=== PATIENT | male | born 1955 | race Caucasian/White ===

== ENCOUNTER → 2017-12-17 | Outpatient (CLI) | payer OTHER ==
--- NOTE | 2017-12-18 08:00 | US ---
EXAMINATION TYPE: US carotid duplex BILAT DATE OF EXAM: 12/17/2017 COMPARISON: 03/10/2016 CLINICAL HISTORY: I65.20 occlusion and stenosis of rt carotid artery. Patient states not having any s urgeries to carotid EXAM MEASUREMENTS: RIGHT: Peak Systolic Velocity (PSV) cm/sec ----- Right CCA: 83.4 ----- Right ICA: 131.8 ----- Right ECA: 255.3 ICA/CCA ratio: 1.6 RIGHT: End Diastole cm/sec ----- Right CCA: 18.0 ----- Right ICA: 38.1 ----- Right ECA: 24.0 LEFT: Peak Systolic Velocity (PSV) cm/sec ----- Left CCA: 86.4 ----- Left ICA: 124.0 ----- Left ECA: 135.0 ICA/CCA ratio: 1.4 LEFT: End Diastole cm/sec ----- Left CCA: 19.3 ----- Left ICA: 27.4 ----- Left ECA: 7.4 VERTEBRALS (direction of flow): Right Vertebral: Antegrade Left Vertebral: Antegrade Rhythm: Normal Bilateral wall thickening. Elevated right proximal ICA, left ECA, right ECA and left bulb. Plaque s een in bilateral bulbs and mid left CCA. Significant stenosis today compared to last exam in 2015. IMPRESSION: 1. No significant progression in degree of stenosis of the carotid arteries in comparison to the lashawn or 2016. Slightly elevated internal carotid artery peak systolic velocity in the right and borderline on the left are present however the internal carotid artery to common carotid artery ratio is within normal limits. Grayscale images favor stenosis of 50% or less at these locations. 2. External carotid artery stenosis of 50-69%, right greater than left.
== END | disposition home or self-care (01) ==
LOC: RADUSWWP 16:52
PROVIDERS: ATTEND Family Medicine
DX: I65.23 Occlusion and stenosis of bilateral carotid arteries (principal)
CPT/HCPCS: 93880

== ENCOUNTER → 2019-08-02 | Outpatient (CLI) | payer MEDICARE, OTHER ==
--- NOTE | 2019-08-02 13:12 | US ---
EXAMINATION TYPE: US carotid duplex BILAT DATE OF EXAM: 08/02/2019 COMPARISON: US 12/17/2017 CLINICAL HISTORY: AR09.89 Carotid bruit. EXAM MEASUREMENTS: RIGHT: Peak Systolic Velocity (PSV) cm/sec ----- Right CCA: 75.0 ----- Right ICA: 170.1 ----- Right ECA: 449.9 ICA/CCA ratio: 2.3 RIGHT: End Diastole cm/sec ----- Right CCA: 16.9 ----- Right ICA: 29.5 ----- Right ECA: 29.3 LEFT: Peak Systolic Velocity (PSV) cm/sec ----- Left CCA: 144.2 ----- Left ICA: 173.4 ----- Left ECA: 217.1 ICA/CCA ratio: 1.2 LEFT: End Diastole cm/sec ----- Left CCA: 26.0 ----- Left ICA: 20.1 ----- Left ECA: 13.7 VERTEBRALS (direction of flow): Right Vertebral: Antegrade Left Vertebral: Antegrade Rhythm: Normal Severe amount of plaque visualized bilaterally. Elevated velocities right ICA, right bulb, right ECA, left dist CCA, left ICA, left bulb, left ECA. IMPRESSION: 1. Stenosis of 50-69% within the right internal carotid artery and greater than 70% within the counseling specialist al carotid artery. 2. Findings likely related to stenosis of 50-69% within the left internal carotid artery and external carotid artery. 3. Diffusely prominent velocity suggests underlying hypertension. Criteria for Assigning % of Stenosis / Diameter reduction (Estimation based on the indirect measurements of the internal carotid artery velocities (ICA PSV). 1. Normal (no stenosis)=ICA PSV < 125 cm/s: ratio < 2.0: ICA EDV<40 cm/s. 2. Less than 50% stenosis=ICA PSV < 125 cm/s: ratio < 2.0: ICA EDV<40 cm/s. 3. 50 to 69% stenosis=ICA PSV of 125 to 230 cm/s: ration 2.0 ? 4.0: ICA EDV 40-100 cm/s. 4. Greater than 70% stenosis to near occlusion= ICA PSV > 230 cm/s: ratio > 4.0: ICA EDV > 100 cm/s. 5. Near occlusion= ICA PSV velocities may be low or undetectable: variable ratio and ICA EDV. 6. Total occlusion=unable to detect flow.
== END | disposition home or self-care (01) ==
LOC: RADUSWWP 12:01
PROVIDERS: ATTEND Family Medicine
DX: I65.21 Occlusion and stenosis of right carotid artery (principal)
CPT/HCPCS: 93880

== ENCOUNTER 2021-05-26 18:00 | Emergency (ER) | payer MEDICARE ==
[2021-05-26 18:08] VITALS: TEMP 97.9
[2021-05-26] MEDS ORDERED: SODIUM CHLORIDE 0.9% 1,000 ML IV STA (18:29)
[2021-05-26] MEDS ORDERED: ONDANSETRON 4 MG/2 ML VIAL IVP STA (18:29)
[2021-05-26] MEDS ORDERED: HYDROmorphone 1 MG/ML 1 ML SYRINGE IVP STA (18:29)
[2021-05-26] MEDS ORDERED: LORazepam 2 MG/ML INJ IV STA (18:31)
--- NOTE | 2021-05-26 18:45 | ED ---
General Adult HPI - General Chief complaint: Extremity Injury, Lower Stated complaint: Groin pain Time Seen by Provider: 05/26/21 18:15 Source: EMS Mode of arrival: EMS Limitations: no limitations - History of Present Illness Initial comments: 65-year-old male patient presents to the emergency department today for evaluation of right groin swelling and pain. Patient states he has had this in the past but usually resolves. States he noticed swelling and then had onset of pain around 1720 this afternoon. States that the pain is constant and sharp. States it hurts take a deep breath. States pain does radiate to the testicle. Denies fever or chills. States he has had normal bowel movements. Denies any vomiting. Has had appendectomy at age 19. No other abdominal surgeries. Patient denies any recent rash, cough, shortness of breath, chest pain, diarrhea, constipation, back pain, numbness, tingling, dizziness, weakness, hematuria, dysuria, urinary urgency, urinary frequency, headache, visual changes, or any other complaints. - Related Data Home Medications Medication Instructions Recorded Confirmed Albuterol Inhaler [Ventolin Hfa 1 - 2 puff INHALATION RT-QID PRN 05/26/21 05/26/21 Inhaler] Atorvastatin Calcium [Lipitor] 40 mg PO DAILY 05/26/21 05/26/21 Fluticasone/Salmeterol 2 puff INHALATION RT-BID 05/26/21 05/26/21 [Fluticasone-Salmeterol 232-14] Ipratropium-Albuterol Nebulize 3 ml INHALATION RT-QID PRN 05/26/21 05/26/21 [Duoneb 0.5 mg-3 mg/3 ml Soln] Loratadine 10 mg PO DAILY PRN 05/26/21 05/26/21 Meloxicam 15 mg PO DAILY 05/26/21 05/26/21 Terazosin HCl 10 mg PO BID 05/26/21 05/26/21 Verapamil HCl [Calan] 120 mg PO BID 05/26/21 05/26/21 lisinopriL [Zestril] 20 mg PO DAILY 05/26/21 05/26/21 Allergies Allergy/AdvReac Type Severity Reaction Status Date / Time codeine Allergy Rash/Hives Verified 05/26/21 20:46 Penicillins Allergy Rash/Hives Verified 05/26/21 20:46 Review of Systems ROS Statement: Those systems with pertinent positive or pertinent negative responses have been documented in the HPI. ROS Other: All systems not noted in ROS Statement are negative. Past Medical History Past Medical History: Asthma, COPD, Hyperlipidemia, Hypertension History of Any Multi-Drug Resistant Organisms: None Reported Past Surgical History: No Surgical Hx Reported Past Psychological History: No Psychological Hx Reported Smoking Status: Never smoker Past Alcohol Use History: None Reported Past Drug Use History: None Reported General Exam Limitations: no limitations General appearance: alert, in no apparent distress, other (This is a well developed, well nourished adult male in mild distress related to pain.) ENT exam: Present: normal exam, normal oropharynx, mucous membranes moist Respiratory exam: Present: normal lung sounds bilaterally. Absent: respiratory distress, wheezes, rales, rhonchi, stridor Cardiovascular Exam: Present: regular rate, normal rhythm, normal heart sounds. Absent: systolic murmur, diastolic murmur, rubs, gallop, clicks GI/Abdominal exam: Present: soft, tenderness (Right lower abdomen, right groin swelling, large inguinal hernia palpated. ), normal bowel sounds. Absent: distended, guarding, rebound, rigid Neurological exam: Present: alert, oriented X3, CN II-XII intact Psychiatric exam: Present: normal affect, normal mood Skin exam: Present: warm, dry, intact, normal color. Absent: rash Course Vital Signs 05/26/21 05/26/21 18:01 21:07 Temperature 97.9 F Pulse Rate 91 93 Respiratory 25 H 16 Rate Blood Pressure 132/74 139/66 O2 Sat by Pulse 97 95 Oximetry Medical Decision Making - Medical Decision Making 65 year-old male patient presents for evaluation of right groin pain and swelling that started an hour prior to arrival. Physical exam did reveal evide nce for large right inguinal hernia. Labs reviewed and showed WBC count 12.8, normal lactic acid. CT abdomen pelvis showed right inguinal hernia. My attending Dr. Vigil was in and was able to reduce the hernia. Patient was ambulatory. Pain much improved. Hernia remained reduced. I did discuss the case with Dr. Car who agrees to follow up with him outpatient. I did discuss home reduction of the hernia with him, lifting restrictions, and follow up information. Return parameters are discussed in detail. He verbalizes understanding and agrees with this plan. My attending is Dr. Vigil. - Lab Data Result diagrams: 05/26/21 18:45 05/26/21 18:45 Lab Results 05/26/21 05/26/21 05/26/21 Range/Units 18:45 18:45 18:45 WBC 12.3 H (3.8-10.6) k/uL RBC 4.46 (4.30-5.90) m/uL Hgb 15.0 (13.0-17.5) gm/dL Hct 43.5 (39.0-53.0) % MCV 97.6 (80.0-100.0) fL MCH 33.6 (25.0-35.0) pg MCHC 34.5 (31.0-37.0) g/dL RDW 13.2 (11.5-15.5) % Plt Count 172 (150-450) k/uL MPV 7.2 Neutrophils % 79 % Lymphocytes % 15 % Monocytes % 4 % Eosinophils % 1 % Basophils % 0 % Neutrophils # 9.7 H (1.3-7.7) k/uL Lymphocytes # 1.9 (1.0-4.8) k/uL Monocytes # 0.5 (0-1.0) k/uL Eosinophils # 0.1 (0-0.7) k/uL Basophils # 0.0 (0-0.2) k/uL Sodium 131 L (137-145) mmol/L Potassium 4.7 (3.5-5.1) mmol/L Chloride 102 (98-107) mmol/L Carbon Dioxide 21 L (22-30) mmol/L Anion Gap 8 mmol/L BUN 20 (9-20) mg/dL Creatinine 0.93 (0.66-1.25) mg/dL Est GFR (CKD-EPI)AfAm >90 (>60 ml/min/1.73 sqM) Est GFR (CKD-EPI)NonAf 85 (>60 ml/min/1.73 sqM) Glucose 113 H (74-99) mg/dL Plasma Lactic Acid Gm 0.6 L (0.7-2.0) mmol/L Calcium 9.6 (8.4-10.2) mg/dL Total Bilirubin 0.9 (0.2-1.3) mg/dL AST 27 (17-59) U/L ALT 24 (4-49) U/L Alkaline Phosphatase 61 (38-126) U/L Total Protein 6.2 L (6.3-8.2) g/dL Albumin 3.9 (3.5-5.0) g/dL Lipase 58 (23-300) U/L Urine Color Urine Appearance (Clear) Urine pH (5.0-8.0) Ur Specific [place] (1.001-1.035) Urine Protein (Negative) Urine Glucose (UA) (Negative) Urine Ketones (Negative) Urine Blood (Negative) Urine Nitrite (Negative) Urine Bilirubin (Negative) Urine Urobilinogen (<2.0) mg/dL Ur Leukocyte Esterase (Negative) 05/26/21 Range/Units 20:36 WBC (3.8-10.6) k/uL RBC (4.30-5.90) m/uL Hgb (13.0-17.5) gm/dL Hct (39.0-53.0) % MCV (80.0-100.0) fL MCH (25.0-35.0) pg MCHC (31.0-37.0) g/dL RDW (11.5-15.5) % Plt Count (150-450) k/uL MPV Neutrophils % % Lymphocytes % % Monocytes % % Eosinophils % % Basophils % % Neutrophils # (1.3-7.7) k/uL Lymphocytes # (1.0-4.8) k/uL Monocytes # (0-1.0) k/uL Eosinophils # (0-0.7) k/uL Basophils # (0-0.2) k/uL Sodium (137-145) mmol/L Potassium (3.5-5.1) mmol/L Chloride (98-107) mmol/L Carbon Dioxide (22-30) mmol/L Anion Gap mmol/L BUN (9-20) mg/dL Creatinine (0.66-1.25) mg/dL Est GFR (CKD-EPI)AfAm (>60 ml/min/1.73 sqM) Est GFR (CKD-EPI)NonAf (>60 ml/min/1.73 sqM) Glucose (74-99) mg/dL Plasma Lactic Acid Gm (0.7-2.0) mmol/L Calcium (8.4-10.2) mg/dL Total Bilirubin (0.2-1.3) mg/dL AST (17-59) U/L ALT (4-49) U/L Alkaline Phosphatase (38-126) U/L Total Protein (6.3-8.2) g/dL Albumin (3.5-5.0) g/dL Lipase (23-300) U/L Urine Color Light Yellow Urine Appearance Clear (Clear) Urine pH 7.0 (5.0-8.0) Ur Specific [place] 1.050 H (1.001-1.035) Urine Protein Negative (Negative) Urine Glucose (UA) 1+ H (Negative) Urine Ketones Negative (Negative) Urine Blood Negative (Negative) Urine Nitrite Negative (Negative) Urine Bilirubin Negative (Negative) Urine Urobilinogen <2.0 (<2.0) mg/dL Ur Leukocyte Esterase Negative (Negative) - Radiology Data Radiology results: report reviewed, image reviewed CT abdomen and pelvis is obtained. Report was reviewed in its entirety. Impression by Dr. Randall shows large common duct stones. No dilated ducts. Mild cardiomegaly. Atherosclerotic vascular disease. Right inguinal hernia show some incarceration with small bowel loops. No evidence of a bowel obstruction. Small amount of fluid noted also seen in the hernia sac. Disposition Clinical Impression: Right inguinal hernia Disposition: HOME SELF-CARE Condition: Good Instructions (If sedation given, give patient instructions): Inguinal Hernia (ED) Additional Instructions: Rest tonight. Do not drive. Do not lift over 10lbs. If the hernia returns, lie down with feet up on a pillow, apply slow steady pressure near the hip bone, take deep breaths and try to relax your muscles. This could help reduce the hernia at home. If pain persists or you are unable to get it to go down, return to the emergency department. Call Dr. Car's office in the morning for an appointment. Return to the emergency department for any new, worsening, or concerning symptoms. Is patient prescribed a controlled substance at d/c from ED?: No Referrals: Martina Cuellar MD [Primary Care Provider] - 1-2 days Marcus Car DO [Doctor of Osteopathic Medicine] - 1-2 days Time of Disposition: 21:51
[2021-05-26 18:51] LABS: Basophils % (A) 0 %; Eosinophils # (A) 0.1 k/uL (0-0.7); Eosinophils % (A) 1 %; HCT 43.5 % (39.0-53.0); Lymphocytes # (A) 1.9 k/uL (1.0-4.8); Lymphocytes % (A) 15 %; MCH 33.6 pg (25.0-35.0); MCHC 34.5 g/dL (31.0-37.0); MCV 97.6 fL (80.0-100.0); Mean Platelet Volume 7.2; Monocytes # (A) 0.5 k/uL (0-1.0); Monocytes % (A) 4 %; Neutrophils # (A) 9.7 k/uL (1.3-7.7); Neutrophils % (A) 79 %; Platelet Count 172 k/uL (150-450); RBC 4.46 m/uL (4.30-5.90); RDW 13.2 % (11.5-15.5); WBC 12.3 k/uL (3.8-10.6)
[2021-05-26 18:59] LABS: ALT 24 U/L (4-49); AST 27 U/L (17-59); African American GFR (CKD) >90 (>60 ml/min/1.73 sqM); Albumin 3.9 g/dL (3.5-5.0); Alkaline Phosphatase 61 U/L (38-126); Anion Gap 8 mmol/L; Blood Urea Nitrogen 20 mg/dL (9-20); Calcium 9.6 mg/dL (8.4-10.2); Carbon Dioxide 21 mmol/L (22-30); Chloride 102 mmol/L (98-107); Glucose 113 mg/dL (74-99); Lipase 58 U/L (23-300); Non-African American GFR(CKD) 85 (>60 ml/min/1.73 sqM); Potassium 4.7 mmol/L (3.5-5.1); Sodium 131 mmol/L (137-145); Total Bilirubin 0.9 mg/dL (0.2-1.3); Total Protein 6.2 g/dL (6.3-8.2)
--- NOTE | 2021-05-26 19:40 | CT ---
EXAMINATION TYPE: CT abdomen pelvis w con DATE OF EXAM: 05/26/2021 COMPARISON: None HISTORY: Right inguinal pain. CT DLP: 764.3 mGycm Automated exposure control for dose reduction was used. CONTRAST: Performed with IV Contrast, patient injected with 100ml mL of Isovue 300. Images obtained from the diaphragm to the floor the pelvis with IV contrast. There are small pleural effusions. Heart size is normal. There is no pericardial effusion. Liver spleen stomach pancreas appear intact. The bile ducts are not dilated. Gallbladder is absent. T here are calcifications in the right upper quadrant consistent with large common duct stones. These m easure up to 14 mm. There is no adrenal mass. Kidneys show satisfactory contrast opacification. There is no hydronephrosi s. Ureters are not dilated. There is no retroperitoneal adenopathy. Bladder distends smoothly. There is right inguinal hernia containing small bowel. There is also small amount of fluid in the hernia sa c. There is no mesenteric edema. There is no ascites or free air. There is no bowel obstruction. The lumbar vertebra have normal alignment. There is no compression fracture. Posterior elements are i ntact. Bony pelvis is intact. Abdominal aorta is shows some atheromatous changes. The hip joints are intact. Appendix not seen. No sign of thickened appendix. There are a few sigmoid diverticula without diverticulitis. IMPRESSION: Large common duct stones. No dilated ducts. Small pleural effusions. Mild cardiomegaly. Atherosclerotic vascular disease. Right inguinal hernia shows some incarceration with small bowel lo op. No evidence of a bowel obstruction. Small amount of fluid noted also in the hernia sac.
[2021-05-26] MEDS ORDERED: HYDROmorphone 0.5 MG/0.5 ML SYRINGE IVP STA (19:49)
[2021-05-26 20:49] LABS: Appearance,Urine Clear (Clear); Bilirubin,Urine Negative (Negative); Blood,Urine Negative (Negative); Color,Urine Light Yellow; Glucose,Urine (UA) 1+ (Negative); Ketones,Urine Negative (Negative); Leukocyte Esterase,Urine Negative (Negative); Nitrite,Urine Negative (Negative); Protein,Urine Negative (Negative); Urobilinogen,Urine <2.0 mg/dL (<2.0)
[2021-05-26 21:08] VITALS: BP 139/66; PULSE 93; RESP 16
== END 2021-05-26 22:12 | disposition home or self-care (01) ==
LOC: EC 18:00
DX: K40.90 Unilateral inguinal hernia, without obstruction or gangrene, not specified as recurrent (principal); I10 Essential (primary) hypertension; J44.9 Chronic obstructive pulmonary disease, unspecified; E78.5 Hyperlipidemia, unspecified; Z88.0 Allergy status to penicillin; Z88.5 Allergy status to narcotic agent; Z79.899 Other long term (current) drug therapy; Z79.51 Long term (current) use of inhaled steroids
CPT/HCPCS: 36415; 80053; 83605; 83690; 85025; 81003; 74177; 99284; 96374; 96375; 96376; J2060; J2405; J1170 ×2; Q9967

== ENCOUNTER 2022-04-21 06:50 | Day surgery (SDC) | payer MEDICARE, OTHER ==
[~2022-04-21 06:50] MED LIST: ALPRAZolam 0.25 MG TAB PO PRN; ALPRAZolam 0.5 MG TAB PO PRN; ASPIRIN 325 MG TAB PO ONE; ATORVASTATIN 80 MG TAB PO STA; HEPARIN SODIUM,PORCINE 10,000 UNIT in SODIUM CHLORIDE 0.9% 1,000 ML IRRIGATION PRN; HEPARIN SODIUM,PORCINE 2,500 UNIT in SODIUM CHLORIDE 0.9% 250 ML IRRIGATION PRN; NITROGLYCERIN SL TABS 0.4 MG TAB SUBLINGUAL PRN; SODIUM CHLORIDE 0.9% 1,000 ML in EMPTY BAG 1 BAG IV SCH
[2022-04-21] MEDS ORDERED: SODIUM CHLORIDE 0.9% 1,000 ML IV ONE (07:17)
[2022-04-21 07:36] VITALS: RESP 16; TEMP 97.9
[2022-04-21 07:40] LABS: Basophils # (A) 0.1 k/uL (0-0.2); Basophils % (A) 1 %; Eosinophils # (A) 0.1 k/uL (0-0.7); Eosinophils % (A) 1 %; HCT 43.2 % (39.0-53.0); HGB 15.1 gm/dL (13.0-17.5); Lymphocytes # (A) 2.6 k/uL (1.0-4.8); Lymphocytes % (A) 33 %; MCHC 35.1 g/dL (31.0-37.0); MCV 94.1 fL (80.0-100.0); Mean Platelet Volume 7.6; Monocytes # (A) 0.4 k/uL (0-1.0); Monocytes % (A) 5 %; Neutrophils # (A) 4.7 k/uL (1.3-7.7); Neutrophils % (A) 59 %; Platelet Count 196 k/uL (150-450); RBC 4.59 m/uL (4.30-5.90); RDW 12.3 % (11.5-15.5); WBC 7.9 k/uL (3.8-10.6)
[2022-04-21 07:48] LABS: African American GFR (CKD) >90 (>60 ml/min/1.73 sqM); Anion Gap 8 mmol/L; Blood Urea Nitrogen 17 mg/dL (9-20); Calcium 9.3 mg/dL (8.4-10.2); Carbon Dioxide 23 mmol/L (22-30); Chloride 110 mmol/L (98-107); Glucose 111 mg/dL (74-99); Non-African American GFR(CKD) 81 (>60 ml/min/1.73 sqM); Potassium 4.2 mmol/L (3.5-5.1); Sodium 141 mmol/L (137-145)
[2022-04-21] MEDS ORDERED: HEPARIN SODIUM 1,000 UN/ML (10ML VL) ONE (08:21)
[2022-04-21] MEDS ORDERED: VERAPAMIL 2.5 MG/ML 2 ML AMP ONE (08:21)
[2022-04-21] MEDS ORDERED: fentaNYL (PF) 50 MCG/ML 2 ML AMP ONE (08:25)
[2022-04-21] MEDS ORDERED: fentaNYL (PF) 50 MCG/ML 2 ML AMP IV ONE (08:31)
[2022-04-21] MEDS ORDERED: LIDOCAINE 1% INJ 10MG/ML (30 ML VIAL-PF) SQ ONE (08:32)
[2022-04-21] MEDS ORDERED: VERAPAMIL SYRINGE (5 MG/10 ML) INTRAARTER ONE (08:35)
[2022-04-21] MEDS ORDERED: MIDAZOLAM 2 MG/2 ML VIAL IV ONE (08:38)
[2022-04-21] MEDS ORDERED: HEPARIN SODIUM 1,000 UN/ML (10ML VL) IV ONE (08:42)
[2022-04-21] MEDS ORDERED: IOPAMIDOL-370 125ML BTL INJ ONE (08:43)
[2022-04-21] MEDS ORDERED: RX INFO: IV CONTRAST WAS GIVEN 1 EACH MISC MISCELLANE PRN (08:53)
[2022-04-21] MEDS ORDERED: LORATADINE 10 MG TAB PO PRN (08:54)
[2022-04-21] MEDS ORDERED: IPRATROPIUM-ALBUTEROL 3 ML NEB INHALATION PRN (08:54)
[2022-04-21] MEDS ORDERED: NON FORMULARY DRUG (Zinc Gluconate 50 MG Tab) PO SCH (09:00)
[2022-04-21] MEDS ORDERED: VERAPAMIL HCL 120 MG PO SCH (09:00)
[2022-04-21] MEDS ORDERED: METOPROLOL TARTRATE 25 MG TAB PO SCH (09:00)
[2022-04-21] MEDS ORDERED: SODIUM CHLORIDE 0.9% 1,000 ML IV SCH (09:00)
[2022-04-21] MEDS ORDERED: ATORVASTATIN 40 MG TAB PO SCH (09:00)
--- NOTE | 2022-04-21 09:00 | P.CARDCATH ---
Date of Procedure: 04/21/22 Description of Procedure: Cardiac Catheterization: The patient is a 66-year-old male with a known history of hypertension, hyperlipidemia and paroxysmal atrial fibrillation, anticoagulated recently underwent an MPI that showed apical ischemia. Recommendations were made regarding cardiac catheterization, the risks and the complications were discussed with the patient who is in full understanding and agreement. Procedure Description: Patient was brought to [facility] in fasting semi-sedated state after receiving Fentanyl and Benadryl achieiving moderate conscious sedated state. Using Xylocaine Anesthesia and Seldinger technique, a 6-[place] sheath was introduced in the right radial artery . Subsequently, selective coronary angiography was performed using a 5-[place] 3.5 bend Jaspreet catheter. Multiple views of the coronary artery including hemiaxial views were obtained. The 5-[place] Pigtail catheter was used to cross the aortic valve and LVEDP was calculated. Following that, catheter and sheath were removed. Hemostasis was obtained with deployment of TR band . There was no immediate complication. Patient was returned to room in stable condition. Of note, the patient received a total of 3000 units of intravenous heparin as well as intra-arterial verapamil. Findings: Calcification of the left main was noted Left main: This is a short sized vessel, bifurcating into LAD and left circumflex, left main has no high-grade stenosis LAD: This is a large size vessel, reaching to the apex, giving rise to a large diagonal branch, the LAD has mild disease of 10-20% in the midsegment the rest of the vessel has no high-grade stenosis Left circumflex: This is a large nondominant vessel giving rise to 3 obtuse marginal branch the left circumflex and its branches have no evidence of high- grade stenosis RCA: This is a large dominant vessel, bifurcating into PDA and PLV the mid RCA has a 30-40% plaque, there is of the vessel has no high-grade stenosis. Left Ventriculogram: Not performed Hemodynamics: There was no gradient across the aortic valve , LVEDP was 14-16 mmHg Conclusion: 1. Calcified left main 2. Mild disease in the mid LAD 3. Mild disease in the mid RCA 4. Right dominance Recommendations: I have recommended to continue medical therapy with aggressive coronary risks modifications. The findings and the recommendations were discussed with the patient and the family and they were in full understanding and agreement. Duration of sedation is 14 minutes.
[2022-04-21 14:48] VITALS: BP 152/78; PULSE 55
[2022-04-21] MEDS ORDERED: TERAZOSIN HCL 10 MG PO SCH (21:00)
== END 2022-04-21 13:40 | disposition home or self-care (01) ==
LOC: CATHCVL 06:50
PROVIDERS: ATTEND Internal Medicine Interventional Cardiology
DX: I48.0 Paroxysmal atrial fibrillation (principal); I10 Essential (primary) hypertension; I73.9 Peripheral vascular disease, unspecified; E78.2 Mixed hyperlipidemia; F17.210 Nicotine dependence, cigarettes, uncomplicated; I65.23 Occlusion and stenosis of bilateral carotid arteries; Z82.49 Family history of ischemic heart disease and other diseases of the circulatory system
CPT/HCPCS: 93458; 80048; 85025; C1769 ×2; C1894; J2250; J2001; J3010; J1644; Q9967

== ENCOUNTER → 2022-12-03 | Outpatient (CLI) | payer MEDICARE ==
--- NOTE | 2022-12-03 09:02 | CT ---
EXAMINATION TYPE: CT abdomen wo con CT DLP: 234.8 mGycm, Automated exposure control for dose reduction was used. DATE OF EXAM: 12/03/2022 8:40 AM COMPARISON: CT abdomen pelvis most recent from 05/26/2021 . CLINICAL INDICATION:Male, 67 years old with history of 87.821; Abnormal xray. Right sided abdominal d iscomfort. TECHNIQUE: Standard CT of the abdomen following the administration of oral contrast. Coronal and sa gittal reformats were performed. FINDINGS: Evaluation is limited due to lack of intravenous contrast. LOWER CHEST: Unremarkable ABDOMEN LIVER: No focal lesion identified within limitations of a noncontrast exam. There is subtle surface n odularity. GALLBLADDER AND BILE DUCTS: Gallbladder is again surgical absent. Redemonstration of large calcificat ion within the dilated common bile duct which measures up to 1.7 cm. Largest calcification measures u p to 1.5 cm. No intrahepatic biliary ductal dilatation. PANCREAS: Unremarkable noncontrast appearance. SPLEEN: Unremarkable noncontrast appearance. ADRENAL GLANDS: Unremarkable noncontrast appearance. KIDNEYS AND URETERS: No evidence of hydronephrosis or renal calculus. STOMACH AND BOWEL: Stomach and duodenum are unremarkable. Enteric contrast reaches the transverse col on. Mild colonic stool burden. No visualized focal wall thickening. No evidence of bowel obstruction. PERITONEUM: No evidence of pneumoperitoneum or free fluid. VASCULATURE: Severe atherosclerotic calcifications are present throughout the abdominal aorta and its branches. No evidence of aortic aneurysm. MUSCULOSKELETAL: No acute osseous abnormalities. Mild disc degeneration changes are present throughou t the thoracolumbar spine. LYMPH NODES: No gross evidence for lymphadenopathy. SOFT TISSUE/ABDOMINAL WALL: Redemonstration of bilateral flank intramuscular lipomas. IMPRESSION: 1. Post cholecystectomy changes redemonstrated with dilated common bile duct measuring up to 1.7 cm w ith 2 large calcifications identified within it. Consider further evaluation with MRCP/ERCP and obstr uctive labs. 2. Subtle surface nodularity to the liver. Correlation with liver function tests for possible cirrhos is is recommended.
== END | disposition home or self-care (01) ==
LOC: RADCTMAIN 07:41
PROVIDERS: ATTEND Family Medicine
DX: K76.89 Other specified diseases of liver (principal); Z87.821 Personal history of retained foreign body fully removed; Z90.49 Acquired absence of other specified parts of digestive tract
CPT/HCPCS: 74150

== ENCOUNTER → 2024-05-11 | Outpatient (CLI) | payer MEDICARE ==
[2024-05-11 15:34] LABS: Blood Urea Nitrogen 9.3 mg/dL (9.0-27.0); Carbon Dioxide 23.4 mmol/L (21.6-31.8); Chloride 105 mmol/L (96-109); Chol/HDL Ratio 2.54 Ratio; Glucose 104 mg/dL (70-110); Potassium 4.7 mmol/L (3.5-5.5); Sodium 142 mmol/L (135-145); VLDL Calculation 19.88 mg/dL (5.00-40.00)
[2024-05-11 15:35] LABS: ALT 20 U/L (10-49); AST 24 U/L (14-35); Albumin 4.2 g/dL (3.8-4.9); Alkaline Phosphatase 94 U/L (41-126); Calcium 9.6 mg/dL (8.7-10.3); Globulin 2.1 g/dL (1.6-3.3); Total Bilirubin 0.7 mg/dL (0.3-1.2); Total Protein 6.3 g/dL (6.2-8.2)
== END | disposition home or self-care (01) ==
LOC: LABWHC1 10:46
PROVIDERS: ATTEND Nurse Practitioner Adult Health
DX: I10 Essential (primary) hypertension (principal); E78.2 Mixed hyperlipidemia
CPT/HCPCS: 36415; 80053; 80061

== ENCOUNTER → 2024-11-25 | Outpatient (CLI) | payer MEDICARE ==
[2024-11-25 20:47] LABS: ALT 23 U/L (10-49); AST 25 U/L (14-35); Chol/HDL Ratio 2.34 Ratio; LDL Cholesterol,Calculated 49.2 mg/dL (0.0-131.0); VLDL Calculation 12.06 mg/dL (5.00-40.00)
== END | disposition home or self-care (01) ==
LOC: LABWHC1 12:30
PROVIDERS: ATTEND Internal Medicine Interventional Cardiology
DX: E78.2 Mixed hyperlipidemia (principal)
CPT/HCPCS: 36415; 80061; 84450; 84460